=== PATIENT | female | born 1940 | race Caucasian/White ===

== ENCOUNTER 2022-04-18 06:11 | Outpatient (CLI) | payer MEDICARE, SELFPAY ==
[2022-04-18 14:13] LABS: Albumin* 4.6 g/dL (3.3-5.0)
[2022-04-18 14:14] LABS: Chloride* 102 mmol/L (96-114); Potassium* 4.4 mmol/L (3.6-5.1); Sodium* 137 mmol/L (135-149)
[2022-04-18 14:16] LABS: Amylase* 74 U/L (18-89); Aspartate Amino Transferase* 24 U/L (12-35); Bilirubin Total* 0.7 mg/dL (0.1-1.5); Carbon Dioxide* 25 mmol/L (20-32); Estimated Glomerular Filt Rate 56 ml/min
[2022-04-18 14:17] LABS: Alanine Aminotransferase* 18 U/L (4-35); Alkaline Phosphatase* 104 U/L (40-150); Blood Urea Nitrogen* 27 mg/dL (7-30); Calcium* 9.4 mg/dL (8.4-10.6); Cholesterol* 212 mg/dL (90-199); Glucose* 91 mg/dL (60-115); HDL Cholesterol* 91 mg/dL (>=50); Lipase* 166 U/L (23-300)
[2022-04-18 14:18] LABS: LDL Cholesterol Calculated 92 mg/dL (<100); Triglycerides* 146 mg/dL (40-149)
[2022-04-18 14:36] LABS: Creatinine Urine 153.3 mg/dL
[2022-04-18 14:42] LABS: Microalbumin Creatinine Ratio 60 mg/g (0-30); Microalbumin Urine 10 mg/dL
== END 2022-04-18 06:12 | disposition home or self-care (01) ==
PROVIDERS: PCP Family Medicine; Visit Provider Family Medicine
DX: Z00.00 Encounter for general adult medical examination without abnormal findings (principal); E04.1 Nontoxic single thyroid nodule; E78.2 Mixed hyperlipidemia; I10 Essential (primary) hypertension; K86.89 Other specified diseases of pancreas
CPT/HCPCS: 80053; 80061; 82043; 82150; 82570; 83690; 84443

== ENCOUNTER 2022-10-13 10:02 | Outpatient (CLI) | payer MEDICARE, SELFPAY | END 2022-10-13 10:03 | disposition home or self-care (01) | PROVIDERS: PCP Family Medicine; Visit Provider Family Medicine | DX: I10 Essential (primary) hypertension (principal); E66.01 Morbid (severe) obesity due to excess calories; R79.89 Other specified abnormal findings of blood chemistry; E04.1 Nontoxic single thyroid nodule; E78.2 Mixed hyperlipidemia | CPT/HCPCS: 80053; 80061 ==

== ENCOUNTER 2023-01-19 13:46 | Outpatient (CLI) | payer MEDICARE, SELFPAY ==
--- NOTE | 2023-01-19 14:00 | CRLHL7_ITS ---
For Patients: As a result of the Century Cures Act, medical imaging exams and procedure reports are released immediately into your electronic medical record. You may view this report before your referring provider. If you have questions, please contact your health care provider. DXA BONE MINERAL DENSITY STUDY Current height (in): 66.0. Weight (lb): 190.0. Menopause age: 45. Ethnicity: White. Reason for exam: Osteoarthritis. 1. Have you had a previous hip or vertebral fracture? No. 2. Have you had any fractures during your adult life which did not result from significant trauma (e.g., auto accident)? No. 3. Did either of your parents have a hip fracture? No. 4. Do you smoke? No. 5. Have you ever taken Glucocorticoids? No. 6. Do you have rheumatoid arthritis? No. 7. Do you have secondary osteoporosis? No. 8. Do you drink 3 or more alcoholic drinks per day? No. 9. Are you being treated for osteoporosis? No. 10. Have you ever taken any of the following medications: Actonel, Evista, Fosamax, Miacalcin, Reclast, Boniva, Forteo, HRT (i.e. estrogen/hormone therapy), Protelos, Prolia, Vitamin D, Calcium, other ??? please specify. ANSWER: Yes, vitamin D, calcium. 11. Do you have any of the following medical conditions: Anorexia or bulimia, asthma or emphysema, end stage renal disease, hyperparathyroidism, any seizure disorders, cancer, inflammatory bowel diseases, hysterectomy, other ??? please specify. ANSWER: No. 12. What was your maximum height (inches)? 67. 13. Do you perform weight bearing exercise regularly? Yes. 14. Do you regularly consume dairy products? Yes. 15. Do you drink caffeinated beverages? No. 16. At what age did your period start? 15. 17. Are you premenopausal? No. 18. How many full term pregnancies have you had? 3. 19. Have you ever missed your period for more than 6 months in a row (not including or menopause)? No. TECHNIQUE: Bone mineral density study was performed using the [employer]. FINDINGS: The results of the study expressed as bone mineral density (BMD) are as follows: Lumbar spine L1 to L4: BMD: 1.327 g/cm2. T-score: 2.5. Z-score: 5.3. Neck Left: BMD: 1.039 g/cm2. T-score: 1.7. Z-score: 4.1. Right: BMD: 0.861 g/cm2. T-score: 0.1. Z-score: 2.5. Total Left: BMD: 1.222 g/cm2. T-score: 2.3. Z-score: 4.5. Right: BMD: 1.110 g/cm2. T-score: 1.4. Z-score: 3.6. IMPRESSION: Normal bone density. *Comparison exams done prior to 12/2019 were performed on different unit, [facility]. Bijan Maki M.D. Diagnostic Radiologist [email or web address] Transcribed: 12:08 pm DW/Dictated by: Bijan Maki MD @ 01/23/2023 10:28:00 AM (Electronically Signed)
== END 2023-01-19 13:47 | disposition home or self-care (01) ==
LOC: RAD 13:46
PROVIDERS: PCP Family Medicine; Visit Provider Family Medicine
DX: M19.90 Unspecified osteoarthritis, unspecified site (principal); R79.89 Other specified abnormal findings of blood chemistry
CPT/HCPCS: 77080

== ENCOUNTER 2023-08-07 09:07 | Outpatient (CLI) | payer MEDICARE, SELFPAY | END 2023-08-07 09:08 | disposition home or self-care (01) | PROVIDERS: PCP Family Medicine; Visit Provider Family Medicine | DX: I10 Essential (primary) hypertension (principal); E55.9 Vitamin D deficiency, unspecified; Z79.899 Other long term (current) drug therapy; E04.1 Nontoxic single thyroid nodule; E78.2 Mixed hyperlipidemia; R79.89 Other specified abnormal findings of blood chemistry | CPT/HCPCS: 80053; 80061; 82043; 82306; 82570; 84443 ==

== ENCOUNTER 2023-09-01 10:59 | Outpatient (RCR) | payer MEDICARE, SELFPAY ==
--- NOTE | 2023-09-01 12:52 | PT.OPE ---
PT [facility] Eval [facility] Out[facility] Eval Start: 09/01/23 09:10 Freq: Status: Active Protocol: Document 09/01/23 09:10 ENM (Rec: 09/01/23 12:04 ENM [id number]) E-signed By Brianda Spicer, DPT Physical Therapy Outpatient Evaluation Insurance Information Recert Due Date 11/24/23 Insurance Name Medicare B Medical Diagnosis buttock pain myalgia Treating Diagnosis left glute pain, impaired transfers, impaired ambulation , impaired posture Referring MD [place] Subjective Subjective Patient presents to PT for complaint of left glute pain. She has been using the treadmill for exercise since the start of the year [address] On Monday she noticed some increased pain in her buttock. Since then the pains have continues to worsen. Went to [facility] and was given voltaren cream yesterday . Wasn't able to sleep well last night at all. Seems to be really bad when sitting in her easy chair recliner having her feet up. Does use a wheeled walker at baseline due to balance impairments. Tylenol does not seem to help. Denies any numbness or tingling. When it started: this week Describes it as: sharp Timing: constant Location: left buttock Irritability: high Severity: high PMHx: B knee replacement, R shoulder pain, arthritis Pain Comments at its best: mild at its worse: 02/06 easing: none aggravating: standing, walking , resting with feet up Current Work Status Retired Objective Other/Pertinent Objective Lumbar AROM: FF: limited due to HS tightness EXT: limited at baseline due to flexed posture Unable to assess further due to pain Hip AROM limited due to pain this session with all motions Strength: did not assess due to pain Palpation/joint mobility: + for pain palpating of proximal L glute max and med gait/balance: Patient ambulating with antalgic gait pattern ,flexed posture, decreased knee ext B Special tests: Unable to assess due to pain Assessment Assessment/Impression Patient is an 83 year old female presenting with acute left buttock pain that started on Monday. Their primary complaint is of significant levels of pain with almost all mobility. They have difficulties with walking, standing and sleeping due to the pain. Upon assessment patients pain was highly irritable which limited the evaluation. She ambulates with an antalgic gait pattern and flexed posture using a wheeled walker. She was unable to tolerate lumbar or hip ROM. Patients concordant pain is brought on with palpation of proximal left glute maxParam [place] responds positively to manual therapy techniques working to address tissue tension at her glute and reports a reduction in pain by end of session. Visible improvements in ability to stand upright at end of session although ambulation continues to be limited and painful. She would greatly benefit from skilled PT to address impairments stated above in order to perform all functional mobility and recreational activities without significant discomfort or difficulty. Primary Functional Limitations walking, standing, sitting in her easy chair, sleeping Plan of Care Rehabilitation Potential Good Physical Therapy Goals In 7-9 visits: 1. Patient will be IND with HEP and self management of symptoms 2. Patient will be able to stand without difficulty in order to participate in household duties 3. Patient will be able to comfortably lay at night for improved sleep hygiene 4. Patient will be able to walk for functional mobility with 3/10 or less buttock pain to progress toward PLOF Coordination/Communication With Referral Source Treatment Plan/Direct Interventions Gait Training,Heat,Ice/Cold/ Vasopneumatic,Joint Mobilization,Manual Therapy, Neuromuscular Re-ed,Self-Care/ Home Management,Therapeutic Activities,Therapeutic Exercises Frequency/Duration 1-2x a week for 2 weeks, 1x a week for 3-4 visits Patient Will Be Discharged From Therapy Completion of LTG(s), Independent w/HEP Evaluation Billing Untimed Code Treatment Minutes 18 Complexity Low Certification Information Initial Certification Date 09/01/23 Ending Certification Date 11/24/23 Provider Signature Shows Agreement With POC & Medical Necessity Physician Signature & Date Requested Please Sign/Date Here Physician Comment/Change : Physician NPI Number #
== END 2023-10-24 14:23 | disposition home or self-care (01) ==
PROVIDERS: PCP Family Medicine; Visit Provider Emergency Medicine
DX: M79.10 Myalgia, unspecified site (principal); M79.18 Myalgia, other site; R29.3 Abnormal posture; Z74.09 Other reduced mobility; Z51.89 Encounter for other specified aftercare
CPT/HCPCS: 97110; 97140; 97161

== ENCOUNTER 2023-12-19 10:41 | Outpatient (CLI) | payer MEDICARE, SELFPAY | END 2023-12-19 10:42 | disposition home or self-care (01) | LOC: FRMREF 10:41 | PROVIDERS: PCP Family Medicine; Visit Provider Family Medicine | DX: Z00.00 Encounter for general adult medical examination without abnormal findings (principal); I10 Essential (primary) hypertension; E67.3 Hypervitaminosis D; R79.89 Other specified abnormal findings of blood chemistry | CPT/HCPCS: 82306 ==

== ENCOUNTER 2024-01-03 15:31 | Outpatient (CLI) | payer MEDICARE, SELFPAY ==
--- NOTE | 2024-01-03 16:00 | CRLHL7_ITS ---
For Patients: As a result of the Century Cures Act, medical imaging exams and procedure reports are released immediately into your electronic medical record. You may view this report before your referring provider. If you have questions, please contact your health care provider. INDICATION: Pancreatic lesion COMPARISON: CT 06/18/2021 TECHNIQUE: Real time damon scale imaging and color Doppler analysis was performed of the right upper quadrant. FINDINGS: The patient`s liver is of normal size and has uniform echogenicity. Main portal vein is patent with antegrade flow and measures 9 millimeters. There is a normal appearance of the hepatic IVC and proximal abdominal aorta. There is no evidence of ascites. The gallbladder is of normal size and there is no evidence of intraluminal stones or sludge. The gallbladder wall measures 2 mm in thickness. The common bile duct is of normal size and measures 7 mm in diameter at the level of the prudence hepatis. The pancreatic head and body appear normal. There is no evidence of a stone or hydronephrosis within the right kidney. The right kidney measures 11.3 cm in length. IMPRESSION: Normal right upper quadrant ultrasound. The pancreatic head and body appear normal. The pancreatic tail is not well visualized due to overlying bowel gas. Dictated by Bijan Maki MD @ 01/04/2024 2:14:26 PM (Electronically Signed)
== END 2024-01-03 15:32 | disposition home or self-care (01) ==
LOC: US 15:32
PROVIDERS: PCP Family Medicine; Visit Provider Family Medicine
DX: K86.89 Other specified diseases of pancreas (principal)
CPT/HCPCS: 76705

== ENCOUNTER 2024-05-10 14:17 | Outpatient (CLI) | payer MEDICARE, SELFPAY | END 2024-05-10 14:18 | disposition home or self-care (01) | PROVIDERS: PCP Family Medicine; Visit Provider Family Medicine | DX: E67.3 Hypervitaminosis D (principal); I10 Essential (primary) hypertension; R79.89 Other specified abnormal findings of blood chemistry | CPT/HCPCS: 80053; 82043; 82306; 82570 ==

== ENCOUNTER 2024-07-08 14:52 | Outpatient (CLI) | payer MEDICARE, SELFPAY | END 2024-07-08 14:53 | disposition home or self-care (01) | LOC: NFLDREF 07-11 11:50 | PROVIDERS: PCP Family Medicine; Referring Provider Family Medicine; Visit Provider Family Medicine | DX: N39.0 Urinary tract infection, site not specified (principal) | CPT/HCPCS: 87086 ==

== ENCOUNTER 2024-11-21 14:46 | Outpatient (CLI) | payer MEDICARE, SELFPAY ==
--- NOTE | 2024-11-21 15:00 | CRLHL7_ITS ---
For Patients: As a result of the Century Cures Act, medical imaging exams and procedure reports are released immediately into your electronic medical record. You may view this report before your referring provider. If you have questions, please contact your health care provider. INDICATION: Pain and swelling. TECHNIQUE: Ultrasound venous duplex lower left extremity. Compression venous exam was performed using damon-scale, color Doppler, and spectral Doppler analysis. COMPARISON: None. FINDINGS: Deep veins: Sonographic imaging demonstrates the left common femoral, deep femoral, superficial femoral, popliteal, posterior tibial and the contralateral right common femoral veins to be fully compressible with normal color Doppler blood flow. Superficial veins: Greater saphenous vein is fully compressible. IMPRESSION: No sign of deep venous thrombosis in the left lower extremity. Dictated by Jordin Bardales MD @ 11/21/2024 4:31:38 PM (Electronically Signed)
== END 2024-11-21 14:47 | disposition home or self-care (01) ==
LOC: US 14:48
PROVIDERS: PCP Family Medicine; Visit Provider Physician Assistant Medical
DX: M79.662 Pain in left lower leg (principal); M79.89 Other specified soft tissue disorders
CPT/HCPCS: 93971

== ENCOUNTER 2025-01-06 14:01 | Outpatient (CLI) | payer MEDICARE, SELFPAY ==
--- NOTE | 2025-01-06 14:00 | CRLHL7_ITS ---
For Patients: As a result of the Century Cures Act, medical imaging exams and procedure reports are released immediately into your electronic medical record. You may view this report before your referring provider. If you have questions, please contact your health care provider. INDICATION: BILATERAL SCREENING MAMMOGRAM, ASYMPTOMATIC 84 Y/O FEMALE COMPARISON: 04/27/2020, 04/25/2019, 04/09/2018 TECHNIQUE: Digital mammogram in CC and MLO projections including computer-aided detection (CAD) and tomosynthesis. BREAST COMPOSITION: The breasts are almost entirely fatty. FINDINGS: No suspicious findings. ASSESSMENT: BI-RADS 1 Negative RECOMMENDATION: Annual screening mammogram. A lay language report of this examination will be provided to the patient. Dictated by: Bijan Maki MD @ 01/09/2025 10:49:54 (Electronically Signed)
== END 2025-01-06 14:02 | disposition home or self-care (01) ==
LOC: MAMMO 14:02
PROVIDERS: PCP Family Medicine; Visit Provider Family Medicine
DX: Z12.31 Encounter for screening mammogram for malignant neoplasm of breast (principal)
CPT/HCPCS: 77063; 77067

== ENCOUNTER 2025-03-28 08:50 | Outpatient (CLI) | payer MEDICARE, SELFPAY | END 2025-03-28 08:51 | disposition home or self-care (01) | PROVIDERS: PCP Family Medicine; Visit Provider Nurse Practitioner Family | DX: R42 Dizziness and giddiness (principal); Z79.899 Other long term (current) drug therapy | CPT/HCPCS: 82306 ==

== ENCOUNTER 2025-05-15 13:00 | Outpatient (RCR) | payer MEDICARE, SELFPAY ==
--- NOTE | 2025-04-29 14:16 | PT.OPE ---
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 On 03/24/25 she was at [employer] with her friends and all of a sudden had a dizzy spell. Pt reports that she felt as if she was spinning. Not sure how long it lasted, but says that it was awful. Went to ED at [facility] and underwent testing which was all negative. She has had a few days since of feeling lightheadedness. Yesterday she felt light headed and felt hat she may fall while standing. Pt notes that she feels light headed when she gets up in the morning. Pt reports her BP is generally high with first reading at medical appointments and lower with second reading. Pt reports that when she takes her BP at home it is usually fine. When she rolls over in bed she folds her pillow in two and occasionally feels like she is going to have an onset of dizziness, but if she keeps her head propped up the dizziness does not usually strike. Current Work Status Retired Precautions Therapy Limitations/ Not Limited Systems Review Objective Other/Pertinent Cervical ROM Objective Extension - 41 Flexion - 24 R/L Sidebend - 19/23 R/L Rotation - 59/64 Oculomotor Testing Gaze Stabilization: negative Smooth Pursuits: negative Saccades: negative Convergence: negative Head Shake: negative Head Thrust: negative L; positive for 3+ beats of nystagmus when testing to Right Positional Testing -R Jacobo-Hallpike: DNT -L Jacobo-Hallpike: positive for dizziness and nystagmus lasting approx 10 seconds; unable to determine direction of nystagmus as pt kept eyes closed -R Roll: DNT -L Roll: DNT Blood Pressure Sittin/81 mmHg Standin/93 mmHg Assessment Assessment/ Cheryle is a very pleasant 85 year old female who presents Impression to our clinic for evaluation and treatment of vertigo. Pt did experience dizziness when a L Casey-Hallpike was tested. I was not able to determine the direction of nystagmus as Cheryle kept her eyes closed and I was not able to open them enough to visualize the direction of the nystagmus. An Krista maneuver was attempted, but discontinued, as pt had trouble rolling onto her side. At that time, I determined that a Semont maneuver would be a better option for Cheryle and she was able to complete this maneuver x 2 today with a reduction in dizziness noted from 6/10 intensity with first round and 3/10 intensity second round. As pt still had quite a bit of difficulty transitioning through this maneuver , I did not feel comfortable asking Cheryle to perform this at home as part of her HEP. The nature of the pts condition was explained and all questions were answered to the pts satisfaction. Skilled PT services are medically necessary to address deficits and return patient to highest level of function. Recommend physical therapy sessions 1/week for 4-6 weeks. Pt agrees with this plan. Printout of HEP was given for I completion and pt gives verbal understanding of each exercise. Primary Functional Rolling in bed Limitations Plan of Care Rehabilitation Fair Potential Physical Therapy STG - To be completed in 2-3 weeks: Goals 1. Pt will report reduction in dizziness frequency and intensity so that they may return to normal bed mobility with minimal bouts of dizziness. LTG - To be completed in 4 weeks: 1. Pt will report ability to roll over in bed to either side without onset of dizziness so that they may roll over in bed without waking. 2. Pt will score 120/120 on mCTSIB as indication of improved vestibular component of balance to reduce risk of falls. 3. Pt will report absence of dizziness with all positional testing so that they may perform all activities with similar head/neck positions including rolling over in bed, washing hair in shower without onset of dizziness. Treatment Plan/ Canalith Repositioning,Heat,Ice/Cold/Vasopneumatic, Direct Interventions Joint Mobilization,Manual Therapy,Neuromuscular Re-ed, Self-Care/Home Management,Therapeutic Activities, Therapeutic Exercises Frequency/Duration 1/week for 4-6 weeks Patient Will Be Completion of LTG(s),Skills Plateau,Independent w/HEP, Discharged From Independently Progressing Therapy Evaluation Billing Untimed Code 40 Treatment Minutes PT Eval No Charge No Complexity Moderate Certification Information Initial 04/29/25 Certification Date Ending Certification 07/28/25 Date Provider Signature Yes Required Provider Signature POC & Medical Necessity Shows Agreement With Physician NPI Number Write NPI# Here Physician Comment/ : Change Physician Signature Please Sign/Date Here & Date Requested
== END 2025-07-08 09:14 | disposition home or self-care (01) ==
PROVIDERS: PCP Family Medicine; Visit Provider Physician Assistant
DX: R42 Dizziness and giddiness (principal); Z51.89 Encounter for other specified aftercare
CPT/HCPCS: 97112; 97162

== ENCOUNTER 2025-06-20 10:08 | Outpatient (CLI) | payer MEDICARE, SELFPAY | END 2025-06-20 10:09 | disposition home or self-care (01) | LOC: NFLDREF 06-26 14:17 | PROVIDERS: PCP Family Medicine; Referring Provider Family Medicine; Visit Provider Family Medicine | DX: M19.011 Primary osteoarthritis, right shoulder (principal) | CPT/HCPCS: 82306 ==